=== PATIENT | male | born 1990 | race Two or more races ===

== ENCOUNTER 2023-07-12 21:47 | Emergency (ER) | payer MEDICAID ==
[~2023-07-12] VITALS: Ht 167.6 cm; Wt 72.6 kg
[2023-07-12 23:10] VITALS: BP 135/72; TEMP 97.6; O2SAT 98
[2023-07-12] MEDS ORDERED: CETI-90 PO (23:15)
[2023-07-12] MEDS ORDERED: FAMO-131 PO (23:15)
[2023-07-12] MEDS ORDERED: PRED20TA PO (23:15)
[2023-07-12] MEDS ORDERED: predniSONE 20 MG TABLET ONE (23:19)
[2023-07-12] MEDS ORDERED: FAMOTIDINE (20 MG) 20 MG TABLET ONE (23:20)
[2023-07-12] MEDS ORDERED: diphenhydrAMINE HCL 50 MG CAPSULE ONE (23:20)
[2023-07-12] MEDS: diphenhydrAMINE HCL 25 MG CAPSULE PO ONE (23:26)
[2023-07-12] MEDS: FAMOTIDINE (20 MG) 20 MG TABLET PO ONE (23:26)
[2023-07-12] MEDS: predniSONE 20 MG TABLET PO ONE (23:26)
== END 2023-07-12 23:28 | disposition home or self-care (01) ==
LOC: ER 22:08
DX: T78.40XA Allergy, unspecified, initial encounter (principal); X58.XXXA Exposure to other specified factors, initial encounter
CPT/HCPCS: 99284; Q0163; J7512

== ENCOUNTER 2023-07-19 17:09 | Emergency (ER) | payer MEDICAID ==
[~2023-07-19] VITALS: Ht 162.6 cm; Wt 70.3 kg
[~2023-07-19 17:09] MED LIST: CETI-90 PO; FAMO-131 PO; PRED20TA PO
[2023-07-19] MEDS ORDERED: DIPH-530 PO (18:17)
[2023-07-19] MEDS ORDERED: TRIA80OI TP (18:18)
[2023-07-19] MEDS ORDERED: METH4TAB3 PO (18:18)
[2023-07-19 18:32] VITALS: BP 128/77; TEMP 98.5
[2023-07-19 18:48] VITALS: O2SAT 100
== END 2023-07-19 18:49 | disposition home or self-care (01) ==
LOC: ER 17:22
DX: R21 Rash and other nonspecific skin eruption (principal); Z79.899 Other long term (current) drug therapy

== ENCOUNTER 2024-03-07 19:40 | Emergency (ER) | payer MEDICAID, OTHER ==
[~2024-03-07] VITALS: Ht 167.6 cm; Wt 74.8 kg
[~2024-03-07 19:40] MED LIST changes: +DIPH-530 PO; +TRIA80OI TP
[2024-03-07] MEDS: IBUPROFEN 600 MG TABLET PO ONE (21:57)
[2024-03-07] MEDS ORDERED: IBUPROFEN 600 MG TABLET ONE (21:57)
[2024-03-07] MEDS ORDERED: NAPR-1164 PO (22:09)
[2024-03-07 22:18] VITALS: BP 129/90; TEMP 98.1; O2SAT 98
== END 2024-03-07 22:56 | disposition home or self-care (01) ==
LOC: ER 19:42
DX: S93.492A Sprain of other ligament of left ankle, initial encounter (principal); Z79.899 Other long term (current) drug therapy; X58.XXXA Exposure to other specified factors, initial encounter; Y93.89 Activity, other specified; Y92.89 Other specified places as the place of occurrence of the external cause; Y99.8 Other external cause status
CPT/HCPCS: 73610-TC; 73630-TC